=== PATIENT | female | born 1945 | race Caucasian/White ===

== ENCOUNTER 2021-04-04 14:04 | Emergency (ER) | payer MEDICARE, MEDICAID ==
[~2021-04-04] VITALS: Ht 162.6 cm; Wt 75.0 kg
[2021-04-04] MEDS ORDERED: MECLIZINE HCL 25 MG TABLET PO ONE (15:15)
[2021-04-04] MEDS ORDERED: METO25 PO (15:23)
[2021-04-04] MEDS ORDERED: FENO48TA20 PO (15:23)
[2021-04-04] MEDS ORDERED: CYCL10 PO (15:23)
[2021-04-04] MEDS ORDERED: LEVO112T4 PO (15:23)
[2021-04-04] MEDS ORDERED: OMEP20 PO (15:23)
[2021-04-04] MEDS ORDERED: BUSP10TA23 PO (15:23)
[2021-04-04] MEDS ORDERED: NITR0.4T52 SL (15:23)
[2021-04-04] MEDS ORDERED: ROSU20TA73 PO (15:23)
[2021-04-04] MEDS ORDERED: HYDR-4396 PO (15:23)
[2021-04-04] MEDS ORDERED: SUMA100T PO (15:23)
[2021-04-04] MEDS ORDERED: PREG50 PO (15:23)
[2021-04-04 16:38] LABS: CREATININE 0.91 mg/dL (0.60-1.30); POTASSIUM 3.9 mmol/L (3.5-5.1)
[2021-04-04 16:38] LABS: BASOPHILS % (AUTO) 1.8 % (0.0-2.0); EOSINOPHILS % (AUTO) 7.4 % (1.0-6.0); HEMATOCRIT 38.3 % (36-46); HEMOGLOBIN 12.5 g/dL (12.0-16.0); LYMPHOCYTES # (AUTO) 1.5 K/uL (1.0-4.8); LYMPHOCYTES % (AUTO) 28.9 % (22.0-44.0); MEAN CORPUSCULAR HEMOGLOBIN 29.8 pg (26.0-34.0); MEAN CORPUSCULAR HGB CONC 32.7 G/dL (31.0-37.0); MEAN CORPUSCULAR VOLUME 91 fL (80-100); MONOCYTES # (AUTO) 0.5 K/uL (0.1-1.0); MONOCYTES % (AUTO) 10.3 % (2.0-9.0); NEUTROPHILS # (AUTO) 2.6 K/uL (1.8-7.7); NEUTROPHILS % (AUTO) 51.6 % (40.0-70.0); PLATELET COUNT (AUTO) 213 K/uL (150-450); RED CELL DISTRIBUTION WIDTH 12.7 % (11.5-14.5)
[2021-04-04 16:46] LABS: AMMONIA 13 umol/L (11-32); TROPONIN I < 0.02 ng/mL (0.00-0.05)
[2021-04-04 16:48] LABS: PROTHROMBIN TIME 10.7 SEC (9.4-11.6)
[2021-04-04 16:53] LABS: LACTIC ACID 0.8 mmol/L (0.4-2.0)
[2021-04-04 17:04] LABS: ALBUMIN 3.4 g/dL (3.4-5.0); BILIRUBIN,TOTAL 0.2 mg/dL (0.1-1.0); TOTAL PROTEIN, SERUM 6.5 g/dL (6.4-8.2)
[2021-04-04 19:05] LABS: APPEARANCE,URINE CLEAR (CLEAR); BILIRUBIN,URINE NEGATIVE (NEGATIVE); GLUCOSE, URINE (UA) NEGATIVE (NEGATIVE); KETONES,URINE NEGATIVE (NEGATIVE); LEUKOCYTE ESTERASE ,URINE NEGATIVE (NEGATIVE); NITRATE,URINE NEGATIVE (NEGATIVE); OCCULT BLOOD,URINE NEGATIVE (NEGATIVE); PH,URINE 6.5 (5.0-8.0); PROTEIN,URINE NEGATIVE (NEGATIVE); UROBILINOGEN,URINE 0.2 mg/dL (<=1.0)
[2021-04-04 19:11] LABS: AMPHET/METH SCREEN,URINE NEGATIVE (NEGATIVE); BARBITURATE SCREEN, URINE NEGATIVE (NEGATIVE); BENZODIAZEPINES SCREEN,URINE NEGATIVE (NEGATIVE); CANNABINOID SCREEN,URINE NEGATIVE (NEGATIVE); COCAINE SCREEN,URINE NEGATIVE (NEGATIVE); METHADONE SCREEN, URINE NEGATIVE (NEGATIVE); OPIATE SCREEN,URINE NEGATIVE (NEGATIVE)
[2021-04-04 19:12] LABS: PHENCYCLIDINE SCREEN,URINE NEGATIVE (NEGATIVE)
[2021-04-04 20:19] VITALS: BP 120/69
== END 2021-04-04 20:23 | disposition home or self-care (01) ==
LOC: EMS 14:07
DX: R42 Dizziness and giddiness (principal); R79.1 Abnormal coagulation profile
CPT/HCPCS: 70450; 71045; 80053; 81003; 82140; 82550; 82962; 83605; 84484; 85025; 85610; 85730; 87040; 93005; 99285; 36415-L1; 36415-TC